=== PATIENT | female | born 1965 | race Caucasian/White ===

== ENCOUNTER 2017-11-20 23:16 | Emergency (ER) | payer OTHER ==
[~2017-11-20] VITALS: Ht 170.2 cm; Wt 73.0 kg
[~2017-11-20 23:16] MED LIST: ALAVERT10 MG; ANAPROX DS550 MG PO; ATROVENT15 ML NS; BENTYL 20 MG TA20 M1 PO; CARAFATE 1 GM TA1 GM PO; CIPRO500 M1 PO; CLEOCIN HCL150 MG PO; CLOTRIMAZOLE AF30 GM TP; CYMBALTA60 MG; DIFLUCAN150 M1 PO; ESTRACE2 MG; FISHOIL; FLEXERIL PO; FOLIC ACID1 MG; HYDROCODONE-APA1 TA1 PO; IBUPROFEN 800800 M1 PO; IMIPRAMINE HCL25 MG PO; IMIPRAMINE HCL50 M2 PO; LEFLUNOMIDE 1010 MG; LEVAQUIN 500 M500 M2 PO; LEVAQUIN 500 M500 M3; LIPITOR20 MG; MACROBID 100 M100 M1 PO; MOBIC7.5 MG PO; MUCINEX TA600 MG/TA2 PO; MULTIVITAMINS1 EAC7 PO; NEXIUM40 MG PO; NORCO 5-325 TA1 EACH PO; NORFLEX100 MG PO; OMEPRAZOLE 20 M20 M1 PO; PHENERGAN 25 MG25 M1 PO; PREDNISOLONE 5 M5 M1; PREDNISONE 5 MG5 M1 PO; PRILOSEC 20 MG20 MG; PROZAC 20 MG20 MG; PROZAC40 MG PO; PYRIDIUM200 MG PO; ROBAXIN 750 MG750 MG PO; TOPAMAX 25 MG T25 M1 PO; TORADOL 10 MG T10 MG PO; TRAMADOL 50 MG50 MG PO; TRIAMCINOLONE A80 G2 TOP; TUSSIONEX PENN473 ML PO; ULTRAM 50MG TAB50 MG PO; VALIUM5 MG PO; VENTOLIN HFA 1818 GM INH; VITAMIN D1000 UNI1 PO; ZANTAC 150MG T150 MG PO; ZOMIG ZMT5 MG PO; [UNRECOGNIZED DRUG - OTHER]; [UNRECOGNIZED DRUG - OTHER] PO
[2017-11-21 00:04] LABS: ABSOLUTE EOSINOPHILS 0.1 thou/uL (0.0-0.7); ABSOLUTE LYMPHOCYTES 2.2 thou/uL (0.8-5.3); ABSOLUTE MONOCYTES 0.7 thou/uL (0.0-1.2); ABSOLUTE NEUTROPHILS 3.5 thou/uL (1.6-8.1); BASOPHILS 0.7 %; EOSINOPHILS 1.2 %; HEMATOCRIT 39.8 % (37.0-47.0); HEMOGLOBIN 12.9 gm/dL (12.0-15.0); LYMPHOCYTES 33.2 %; MCH 28.4 pg (26.0-34.0); MCHC 32.5 g/dL (28.0-37.0); MCV 87.6 fL (80.0-100.0); MONOCYTES 10.7 %; MPV 9.4 fl. (7.2-11.1); NUCLEATED RBCS 0 /100WBC; PLATELET COUNT* 249 thou/uL (150-400); POLYS 54.2 %; RBC 4.55 mil/uL (4.20-5.00); RDW-CV 14.3 % (10.5-14.5); WBC 6.5 thou/uL (4.0-11.0)
[2017-11-21 00:11] LABS: MAGNESIUM 1.8 mg/dL (1.8-2.4); POTASSIUM 3.4 mmol/L (3.5-5.1)
[2017-11-21] MEDS ORDERED: K-DUR 20 MEQ T20 MEQ PO (00:23)
[2017-11-21 00:36] VITALS: BP 116/74
== END 2017-11-21 00:37 | disposition home or self-care (01) ==
LOC: M.ERS 23:16
PROVIDERS: Nurse Practitioner
DX: E87.6 Hypokalemia (principal); R25.2 Cramp and spasm; G43.909 Migraine, unspecified, not intractable, without status migrainosus; M06.9 Rheumatoid arthritis, unspecified; M79.7 Fibromyalgia; F17.210 Nicotine dependence, cigarettes, uncomplicated; Z88.0 Allergy status to penicillin; Z88.1 Allergy status to other antibiotic agents; Z88.5 Allergy status to narcotic agent; Z88.6 Allergy status to analgesic agent; Z90.710 Acquired absence of both cervix and uterus

== ENCOUNTER 2017-12-03 16:57 | Emergency (ER) | payer OTHER ==
[~2017-12-03] VITALS: Ht 170.2 cm; Wt 81.7 kg
[~2017-12-03 16:57] MED LIST changes: +K-DUR 20 MEQ T20 MEQ PO
[2017-12-03 17:42] LABS: ABSOLUTE BASOPHILS 0.1 thou/uL (0.0-0.2); ABSOLUTE EOSINOPHILS 0.1 thou/uL (0.0-0.7); ABSOLUTE LYMPHOCYTES 0.9 thou/uL (0.8-5.3); ABSOLUTE MONOCYTES 0.5 thou/uL (0.0-1.2); ABSOLUTE NEUTROPHILS 4.1 thou/uL (1.6-8.1); BASOPHILS 1.4 %; EOSINOPHILS 1.1 %; HEMATOCRIT 42.1 % (37.0-47.0); LYMPHOCYTES 16.6 %; MCH 28.7 pg (26.0-34.0); MCHC 33.3 g/dL (28.0-37.0); MCV 86.3 fL (80.0-100.0); MONOCYTES 9.2 %; MPV 9.4 fl. (7.2-11.1); NUCLEATED RBCS 0 /100WBC; PLATELET COUNT* 248 thou/uL (150-400); POLYS 71.7 %; RBC 4.88 mil/uL (4.20-5.00); RDW-CV 14.1 % (10.5-14.5); WBC 5.7 thou/uL (4.0-11.0)
[2017-12-03 17:50] LABS: CALCIUM 8.7 mg/dL (8.5-10.1); POTASSIUM 3.4 mmol/L (3.5-5.1)
[2017-12-03 17:54] LABS: ALBUMIN 3.7 g/dL (3.4-5.0); TOTAL BILIRUBIN 0.4 mg/dL (<0.1-1.0); TOTAL PROTEIN 7.5 g/dL (6.4-8.2)
[2017-12-03] MEDS ORDERED: K-DUR 20 MEQ T20 MEQ PO (18:17)
[2017-12-03 18:38] VITALS: BP 122/78
== END 2017-12-03 18:39 | disposition home or self-care (01) ==
LOC: M.ERS 16:57
PROVIDERS: Nurse Practitioner
DX: E87.6 Hypokalemia (principal); R19.7 Diarrhea, unspecified; M79.7 Fibromyalgia; G43.909 Migraine, unspecified, not intractable, without status migrainosus; M06.9 Rheumatoid arthritis, unspecified; F17.210 Nicotine dependence, cigarettes, uncomplicated; Z98.890 Other specified postprocedural states; Z90.710 Acquired absence of both cervix and uterus; Z88.1 Allergy status to other antibiotic agents; Z88.0 Allergy status to penicillin; Z88.5 Allergy status to narcotic agent; Z88.2 Allergy status to sulfonamides

== ENCOUNTER 2018-07-22 20:15 | Emergency (ER) | payer OTHER ==
[~2018-07-22] VITALS: Ht 170.2 cm; Wt 79.4 kg
[2018-07-22 21:55] LABS: URINE BILIRUBIN NEGATIVE (Negative); URINE BLOOD NEGATIVE (Negative); URINE CLARITY CLEAR; URINE COLOR YELLOW; URINE GLUCOSE-RANDOM NEGATIVE (Negative); URINE KETONES NEGATIVE (Negative); URINE LEUKOCYTES-REFLEX NEGATIVE (Negative); URINE NITRITE-REFLEX NEGATIVE (Negative); URINE PROTEIN NEGATIVE (Negative); URINE SPECIFIC GRAVITY >= 1.030 (1.005-1.030); URINE UROBILINOGEN 0.2 E.U./dl (0.2-1.0)
[2018-07-22 22:17] LABS: ABSOLUTE EOSINOPHILS 0.1 thou/uL (0.0-0.7); ABSOLUTE LYMPHOCYTES 1.3 thou/uL (0.8-5.3); ABSOLUTE MONOCYTES 0.4 thou/uL (0.0-1.2); ABSOLUTE NEUTROPHILS 2.2 thou/uL (1.6-8.1); BASOPHILS 0.7 %; EOSINOPHILS 1.5 %; HEMATOCRIT 43.6 % (37.0-47.0); HEMOGLOBIN 14.5 gm/dL (12.0-15.0); LYMPHOCYTES 32.8 %; MCHC 33.2 g/dL (28.0-37.0); MCV 87.2 fL (80.0-100.0); MONOCYTES 10.4 %; MPV 9.2 fl. (7.2-11.1); NUCLEATED RBCS 0 /100WBC; PLATELET COUNT* 232 thou/uL (150-400); POLYS 54.6 %; RDW-CV 13.9 % (10.5-14.5); WBC 4.1 thou/uL (4.0-11.0)
[2018-07-22 22:22] LABS: POTASSIUM 3.1 mmol/L (3.5-5.1)
[2018-07-22 22:26] LABS: ALBUMIN 3.9 g/dL (3.4-5.0); TOTAL BILIRUBIN 0.3 mg/dL (<0.1-1.0)
[2018-07-23] MEDS ORDERED: IBUPROFEN 800800 M1 PO (00:32)
[2018-07-23 00:42] VITALS: BP 118/71
== END 2018-07-23 00:42 | disposition home or self-care (01) ==
LOC: M.ERS 20:15
PROVIDERS: Physician Assistant
DX: R10.9 Unspecified abdominal pain (principal); F17.210 Nicotine dependence, cigarettes, uncomplicated; M79.7 Fibromyalgia; G43.909 Migraine, unspecified, not intractable, without status migrainosus; M06.9 Rheumatoid arthritis, unspecified; Z88.1 Allergy status to other antibiotic agents; Z88.5 Allergy status to narcotic agent; Z88.0 Allergy status to penicillin; Z88.2 Allergy status to sulfonamides; Z98.890 Other specified postprocedural states; Z90.710 Acquired absence of both cervix and uterus

== ENCOUNTER 2019-02-01 16:18 | Emergency (ER) | payer OTHER ==
[~2019-02-01] VITALS: Ht 170.2 cm; Wt 79.4 kg
[2019-02-01] MEDS ORDERED: CYMBALTA20 MG PO (16:33)
[2019-02-01 16:56] LABS: ABSOLUTE BASOPHILS 0.1 thou/uL (0.0-0.2); ABSOLUTE EOSINOPHILS 0.1 thou/uL (0.0-0.7); ABSOLUTE LYMPHOCYTES 1.7 thou/uL (0.8-5.3); ABSOLUTE MONOCYTES 0.5 thou/uL (0.0-1.2); BASOPHILS 1.2 %; EOSINOPHILS 1.2 %; HEMOGLOBIN 13.9 gm/dL (12.0-15.0); LYMPHOCYTES 31.8 %; MCH 28.5 pg (26.0-34.0); MCV 86.4 fL (80.0-100.0); MONOCYTES 9.4 %; MPV 9.6 fl. (7.2-11.1); NUCLEATED RBCS 0 /100WBC; PLATELET COUNT* 251 thou/uL (150-400); POLYS 56.4 %; RBC 4.86 mil/uL (4.20-5.00); RDW-CV 13.5 % (10.5-14.5); WBC 5.4 thou/uL (4.0-11.0)
[2019-02-01 17:04] LABS: ANION GAP 12 mmol/L (7-16); BUN 16 mg/dL (7-18); CALCIUM 8.8 mg/dL (8.5-10.1); CHLORIDE 103 mmol/L (98-107); CO2 24 mmol/L (21-32); GLUCOSE 82 mg/dL (70-99); POTASSIUM 3.1 mmol/L (3.5-5.1); SODIUM 139 mmol/L (136-145)
[2019-02-01 17:09] LABS: URINE BILIRUBIN NEGATIVE (Negative); URINE BLOOD NEGATIVE (Negative); URINE CLARITY CLEAR; URINE COLOR YELLOW; URINE GLUCOSE-RANDOM NEGATIVE (Negative); URINE KETONES NEGATIVE (Negative); URINE LEUKOCYTES-REFLEX NEGATIVE (Negative); URINE NITRITE-REFLEX NEGATIVE (Negative); URINE PROTEIN NEGATIVE (Negative); URINE UROBILINOGEN 0.2 E.U./dl (0.2-1.0)
[2019-02-01 17:14] LABS: ALBUMIN 3.9 g/dL (3.4-5.0); ALKALINE PHOSPHATASE 107 U/L (46-116); SGOT 18 U/L (15-37); SGPT 33 U/L (30-65); TOTAL BILIRUBIN 0.3 mg/dL (<0.1-1.0); TOTAL PROTEIN 7.9 g/dL (6.4-8.2); TROPONIN-I LEVEL <0.06 ng/mL (<0.06)
[2019-02-01] MEDS ORDERED: POTASSIUM20 PO (17:19)
[2019-02-01 17:28] LABS: AMP/METHAMP Negative (Negative); BARBITURATES Negative (Negative); BENZODIAZEPINES Negative (Negative); COCAINE Negative (Negative); METHADONE Negative (Negative); OPIATES Negative (Negative); PCP Negative (Negative); THC Negative (Negative)
[2019-02-01 17:36] VITALS: BP 116/78
--- NOTE | 2019-02-02 15:53 | EKG ---
[place] [address] ELECTROCARDIOGRAM REPORT Name: YAMILE GORDONLLDeyanira LYONS Room: [facility]#: [id number] Admission: 02/01/19 Attend Phys: Discharge: 02/01/19 Date of : 69 Report #: [id number] THIS REPORT FOR: //name// 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
== END 2019-02-01 17:36 | disposition home or self-care (01) ==
LOC: M.ERS 16:18
PROVIDERS: Physician Assistant
DX: E87.6 Hypokalemia (principal); F17.210 Nicotine dependence, cigarettes, uncomplicated; M79.7 Fibromyalgia; G43.909 Migraine, unspecified, not intractable, without status migrainosus; M06.9 Rheumatoid arthritis, unspecified; Z88.1 Allergy status to other antibiotic agents; Z88.5 Allergy status to narcotic agent; Z88.0 Allergy status to penicillin; Z88.2 Allergy status to sulfonamides; Z90.710 Acquired absence of both cervix and uterus; Z98.890 Other specified postprocedural states

== ENCOUNTER 2019-06-10 17:29 | Emergency (ER) | payer OTHER ==
[~2019-06-10] VITALS: Ht 170.2 cm; Wt 77.1 kg
[~2019-06-10 17:29] MED LIST changes: +CYMBALTA20 MG PO; +POTASSIUM20 PO
[2019-06-10 18:47] VITALS: BP 120/74
== END 2019-06-10 18:47 | disposition home or self-care (01) ==
LOC: M.ERS 17:29
DX: M25.552 Pain in left hip (principal); M25.551 Pain in right hip; R10.2 Pelvic and perineal pain; G43.909 Migraine, unspecified, not intractable, without status migrainosus; M06.9 Rheumatoid arthritis, unspecified; M79.7 Fibromyalgia; F17.210 Nicotine dependence, cigarettes, uncomplicated; Z90.710 Acquired absence of both cervix and uterus; Z98.890 Other specified postprocedural states; Z88.0 Allergy status to penicillin; Z88.1 Allergy status to other antibiotic agents; Z88.2 Allergy status to sulfonamides; Z88.6 Allergy status to analgesic agent

== ENCOUNTER 2019-11-06 20:25 | Emergency (ER) | payer OTHER ==
[~2019-11-06] VITALS: Ht 170.2 cm; Wt 79.8 kg
[2019-11-06] MEDS ORDERED: PREDNISONE 2.52.5 M1 PO (20:34)
[2019-11-06 20:57] LABS: URINE BILIRUBIN NEGATIVE (Negative); URINE BLOOD NEGATIVE (Negative); URINE CLARITY CLEAR; URINE COLOR YELLOW; URINE GLUCOSE-RANDOM NEGATIVE (Negative); URINE KETONES NEGATIVE (Negative); URINE LEUKOCYTES-REFLEX NEGATIVE (Negative); URINE NITRITE-REFLEX NEGATIVE (Negative); URINE PROTEIN NEGATIVE (Negative); URINE SPECIFIC GRAVITY >= 1.030 (1.005-1.030); URINE UROBILINOGEN 0.2 E.U./dl (0.2-1.0)
[2019-11-06 21:00] LABS: ABSOLUTE EOSINOPHILS 0.1 thou/uL (0.0-0.7); ABSOLUTE LYMPHOCYTES 1.7 thou/uL (0.8-5.3); ABSOLUTE MONOCYTES 0.6 thou/uL (0.0-1.2); BASOPHILS 0.7 %; EOSINOPHILS 1.5 %; HEMATOCRIT 44.8 % (37.0-47.0); LYMPHOCYTES 31.5 %; MCH 29.5 pg (26.0-34.0); MCHC 33.5 g/dL (28.0-37.0); MCV 88.1 fL (80.0-100.0); MPV 9.4 fl. (7.2-11.1); NUCLEATED RBCS 0 /100WBC; PLATELET COUNT* 283 thou/uL (150-400); POLYS 55.3 %; RBC 5.09 mil/uL (4.20-5.00); RDW-CV 14.1 % (10.5-14.5); WBC 5.4 thou/uL (4.0-11.0)
[2019-11-06 21:09] LABS: CALCIUM 8.6 mg/dL (8.5-10.1); CREATININE 1.1 mg/dL (0.6-1.3); POTASSIUM 3.4 mmol/L (3.5-5.1)
[2019-11-06 21:13] LABS: ALBUMIN 4.1 g/dL (3.4-5.0); TOTAL BILIRUBIN 0.4 mg/dL (<0.1-1.0)
[2019-11-06 21:23] VITALS: BP 113/76
== END 2019-11-06 21:26 | disposition home or self-care (01) ==
LOC: M.ERS 20:25
PROVIDERS: Personal Emergency Response Attendant
DX: E87.6 Hypokalemia (principal); R20.2 Paresthesia of skin; M79.18 Myalgia, other site; M79.7 Fibromyalgia; G43.909 Migraine, unspecified, not intractable, without status migrainosus; M06.9 Rheumatoid arthritis, unspecified; K58.9 Irritable bowel syndrome, unspecified; F17.210 Nicotine dependence, cigarettes, uncomplicated; Z88.1 Allergy status to other antibiotic agents; Z88.0 Allergy status to penicillin; Z88.2 Allergy status to sulfonamides; Z88.5 Allergy status to narcotic agent; Z90.710 Acquired absence of both cervix and uterus; Z98.890 Other specified postprocedural states

== ENCOUNTER → 2020-01-05 | Outpatient (CLI) | payer OTHER ==
[~2020-01-05] MED LIST changes: +PREDNISONE 2.52.5 M1 PO
== END ==
LOC: M.CT 12:58
PROVIDERS: ATTEND Nurse Practitioner Family
DX: Z13.6 Encounter for screening for cardiovascular disorders (principal)

== ENCOUNTER 2020-06-22 18:39 | Emergency (ER) | payer OTHER ==
[~2020-06-22] VITALS: Ht 170.2 cm; Wt 79.4 kg
[2020-06-22] MEDS ORDERED: ONDANSETRON ODT4 MG PO (19:33)
[2020-06-22 21:36] VITALS: BP 136/85
== END 2020-06-22 21:37 | disposition home or self-care (01) ==
LOC: M.ERS 18:39
DX: G43.909 Migraine, unspecified, not intractable, without status migrainosus (principal); M79.7 Fibromyalgia; M06.9 Rheumatoid arthritis, unspecified; K58.9 Irritable bowel syndrome, unspecified; F17.210 Nicotine dependence, cigarettes, uncomplicated; Z88.1 Allergy status to other antibiotic agents; Z90.710 Acquired absence of both cervix and uterus; Z98.890 Other specified postprocedural states; Z88.0 Allergy status to penicillin; Z88.2 Allergy status to sulfonamides; Z88.5 Allergy status to narcotic agent

== ENCOUNTER 2020-08-25 21:22 | Emergency (ER) | payer OTHER ==
[~2020-08-25] VITALS: Ht 170.2 cm; Wt 79.4 kg
[~2020-08-25 21:22] MED LIST changes: +ONDANSETRON ODT4 MG PO
[2020-08-25 21:31] VITALS: BP 134/94
== END 2020-08-25 22:11 | disposition home or self-care (01) ==
LOC: M.ERS 21:22
DX: Z20.822 Contact with and (suspected) exposure to COVID-19 (principal); M79.7 Fibromyalgia; M06.9 Rheumatoid arthritis, unspecified; K58.9 Irritable bowel syndrome, unspecified; G43.909 Migraine, unspecified, not intractable, without status migrainosus; F17.210 Nicotine dependence, cigarettes, uncomplicated; Z88.5 Allergy status to narcotic agent; Z88.2 Allergy status to sulfonamides; Z88.0 Allergy status to penicillin; Z88.1 Allergy status to other antibiotic agents; Z90.710 Acquired absence of both cervix and uterus; Z98.890 Other specified postprocedural states

== ENCOUNTER 2021-06-24 01:22 | Emergency (ER) | payer OTHER ==
[~2021-06-24] VITALS: Ht 170.2 cm; Wt 87.1 kg
[2021-06-24 02:02] LABS: ABSOLUTE BASOPHILS 0.1 thou/uL (0.0-0.2); ABSOLUTE EOSINOPHILS 0.1 thou/uL (0.0-0.7); ABSOLUTE LYMPHOCYTES 2.1 thou/uL (0.8-5.3); ABSOLUTE MONOCYTES 0.8 thou/uL (0.0-1.2); ABSOLUTE NEUTROPHILS 5.8 thou/uL (1.6-8.1); BASOPHILS 0.8 %; EOSINOPHILS 0.6 %; HEMATOCRIT 42.5 % (37.0-47.0); LYMPHOCYTES 23.9 %; MCH 27.6 pg (26.0-34.0); MCHC 32.9 g/dL (28.0-37.0); MONOCYTES 9.5 %; NUCLEATED RBCS 0 /100WBC; PLATELET COUNT* 285 thou/uL (150-400); POLYS 65.2 %; RBC 5.06 mil/uL (4.20-5.00); RDW-CV 13.7 % (10.5-14.5); WBC 8.9 thou/uL (4.0-11.0)
[2021-06-24 02:28] LABS: CALCIUM 9.1 mg/dL (8.5-10.1)
[2021-06-24 02:32] LABS: ALBUMIN 3.6 g/dL (3.4-5.0); TOTAL BILIRUBIN 0.2 mg/dL (<0.1-1.0); TOTAL PROTEIN 7.3 g/dL (6.4-8.2)
[2021-06-24 02:48] LABS: POTASSIUM 2.9 mmol/L (3.5-5.1)
[2021-06-24] MEDS ORDERED: CARAFATE 1 GM TA1 GM PO (03:57)
[2021-06-24] MEDS ORDERED: PROTONIX40 MG PO (03:57)
[2021-06-24] MEDS ORDERED: KLOR-CON 1010 MEQ PO (04:01)
[2021-06-24 04:08] VITALS: BP 136/68
== END 2021-06-24 04:08 | disposition home or self-care (01) ==
LOC: M.ERS 01:22
PROVIDERS: Emergency Medicine
DX: K29.70 Gastritis, unspecified, without bleeding (principal); K20.90 Esophagitis, unspecified without bleeding; G43.909 Migraine, unspecified, not intractable, without status migrainosus; M06.9 Rheumatoid arthritis, unspecified; F17.210 Nicotine dependence, cigarettes, uncomplicated; Z90.710 Acquired absence of both cervix and uterus; Z88.1 Allergy status to other antibiotic agents; Z88.6 Allergy status to analgesic agent; Z88.5 Allergy status to narcotic agent; Z88.0 Allergy status to penicillin; Z88.2 Allergy status to sulfonamides

== ENCOUNTER 2021-09-17 14:26 | Emergency (ER) | payer OTHER ==
[~2021-09-17] VITALS: Ht 170.2 cm; Wt 90.7 kg
[~2021-09-17 14:26] MED LIST changes: +KLOR-CON 1010 MEQ PO; +PROTONIX40 MG PO
[2021-09-17 15:08] LABS: ABSOLUTE EOSINOPHILS 0.1 thou/uL (0.0-0.7); ABSOLUTE LYMPHOCYTES 0.9 thou/uL (0.8-5.3); ABSOLUTE MONOCYTES 0.4 thou/uL (0.0-1.2); ABSOLUTE NEUTROPHILS 3.1 thou/uL (1.6-8.1); BASOPHILS 0.7 %; EOSINOPHILS 1.4 %; HEMATOCRIT 43.6 % (37.0-47.0); HEMOGLOBIN 14.4 gm/dL (12.0-15.0); LYMPHOCYTES 20.9 %; MCH 27.8 pg (26.0-34.0); MCHC 33.1 g/dL (28.0-37.0); MONOCYTES 8.4 %; MPV 8.9 fl. (7.2-11.1); NUCLEATED RBCS 0 /100WBC; PLATELET COUNT* 255 thou/uL (150-400); POLYS 68.6 %; RDW-CV 14.3 % (10.5-14.5); WBC 4.5 thou/uL (4.0-11.0)
--- NOTE | 2021-09-17 15:08 | EKG ---
[place] [address] ELECTROCARDIOGRAM REPORT Name: SHERMAN GORDON Room: [facility]#: [id number] Admission: 09/17/21 Attend Phys: Discharge: Date of : 69 Date of Service: 09/17/21 1457 Report #: [id number] THIS REPORT FOR: //name// [facility] ED Test Date: 2021-09-17 Test Time: 14:57:48 Pat Name: SHERMAN GORDON Department: Room: Gender: Clothing Sorter: TO : 1965 Requested By: Leonela Devine Order Number: [id number] MD: Deejay Moreira Measurements Intervals Wayne Rate: 84 P: 4 MD: 136 QRS: 44 QRSD: 94 T: 58 QT: 370 QTc: 438 Interpretive Statements Sinus rhythm Compared to ECG 02/01/2019 16:53:54 No significant changes Electronically Signed On 09-17-2021 15:07:50 RN PRODUCTION by Deejay Moreira [email or web address] <ELECTRONICALLY SIGNED> By: Deejay Moreira MD, [facility] 09/17/21 1507 1457 1457 Deejay Moreira MD, FAC /EPI
[2021-09-17 15:16] LABS: CALCIUM 8.8 mg/dL (8.5-10.1); CREATININE 0.8 mg/dL (0.6-1.3); POTASSIUM 3.3 mmol/L (3.5-5.1)
[2021-09-17 15:21] LABS: ALBUMIN 3.7 g/dL (3.4-5.0); MAGNESIUM 2.2 mg/dL (1.8-2.4); TOTAL BILIRUBIN 0.5 mg/dL (<0.1-1.0); TOTAL PROTEIN 7.4 g/dL (6.4-8.2)
[2021-09-17 15:25] LABS: INFLUENZA A ANTIGEN Negative (Negative); INFLUENZA B ANTIGEN Negative (Negative)
[2021-09-17 17:43] LABS: URINE BILIRUBIN NEGATIVE (Negative); URINE BLOOD NEGATIVE (Negative); URINE CLARITY CLEAR; URINE COLOR YELLOW; URINE GLUCOSE-RANDOM NEGATIVE (Negative); URINE KETONES TRACE (Negative); URINE LEUKOCYTES-REFLEX NEGATIVE (Negative); URINE NITRITE-REFLEX NEGATIVE (Negative); URINE PROTEIN NEGATIVE (Negative); URINE UROBILINOGEN 0.2 E.U./dl (0.2-1.0)
[2021-09-17] MEDS ORDERED: DOXYCYCLINE 10100 MG PO (17:52)
[2021-09-17] MEDS ORDERED: LOPERAMIDE 2 MG2 M1 PO (17:52)
[2021-09-17 18:03] VITALS: BP 131/80
== END 2021-09-17 18:03 | disposition home or self-care (01) ==
LOC: M.ERS 14:26
PROVIDERS: Student in an Organized Health Care Education/Training Program
DX: E87.6 Hypokalemia (principal); Z20.822 Contact with and (suspected) exposure to COVID-19; M79.7 Fibromyalgia; G43.909 Migraine, unspecified, not intractable, without status migrainosus; K58.9 Irritable bowel syndrome, unspecified; F17.210 Nicotine dependence, cigarettes, uncomplicated; Z88.0 Allergy status to penicillin; Z88.2 Allergy status to sulfonamides; Z88.5 Allergy status to narcotic agent; Z88.1 Allergy status to other antibiotic agents; Z90.710 Acquired absence of both cervix and uterus; Z98.890 Other specified postprocedural states